=== PATIENT | female | born 1960 | race Asian ===

== ENCOUNTER 2018-10-05 16:51 | Inpatient (IN) | payer OTHER ==
[~2018-10-05] VITALS: Ht 167.6 cm; Wt 63.0 kg
[~2018-10-05 16:51] MED LIST: AMLO2.5T3 PO; BP MED; CARB1TAB25 PO; CHOL400C PO; ENOX40SY4 SQ; OXYC1TAB7 PO; PARKINSON MED; TRIH2TAB3 PO
[2018-10-05] MEDS ORDERED: SODIUM CHLORIDE FLUSH 10ML SYR IVF ONE (18:30)
[2018-10-05] MEDS ORDERED: SODIUM CHLORIDE FLUSH 10ML SYR IVF PRN (19:00)
[2018-10-05 19:02] LABS: BASOPHILS # (AUTO) 0.02 x10^3/uL (0-0.1); BASOPHILS % (AUTO) 0 % (0-1); EOSINOPHILS # (AUTO) 0.02 x10^3/uL (0-0.4); EOSINOPHILS % (AUTO) 0 % (1-7); LYMPHOCYTES # (AUTO) 1.05 x10^3/uL (1-3.4); LYMPHOCYTES % (AUTO) 20 % (22-44); MD NO; MEAN CORPUSCULAR HEMOGLOBIN 33.7 pg (27.0-34.8); MEAN CORPUSCULAR HGB CONC 34.2 g/dL (32.4-35.8); MEAN CORPUSCULAR VOLUME 98.5 fL (80-100); MEAN PLATELET VOLUME 8.7 fL (7.4-10.4); MONOCYTES # (AUTO) 0.34 x10^3/uL (0.2-0.8); MONOCYTES % (AUTO) 7 % (2-9); NEUTROPHILS # (AUTO) 3.77 x10^3/uL (1.8-6.8); NEUTROPHILS % (AUTO) 73 % (42-75); PLATELET COUNT 180 x10^3/uL (130-400); RED BLOOD COUNT 3.83 x10^6/uL (3.82-5.3); RED CELL DISTRIBUTION WIDTH 13.2 % (9.6-15.2)
[2018-10-05 19:08] LABS: INTERNATIONAL NORMALIZED RATIO 0.98 (0.93-1.1); PROTHROMBIN TIME 10.2 Seconds (9.6-11.5)
[2018-10-05 19:10] LABS: ALANINE AMINOTRANSFERASE 19 U/L (12-78); ALBUMIN 3.8 g/dL (3.4-5.0); ANION GAP 5 mmol/L (5-15); CALCIUM 9.2 mg/dL (8.5-10.1); CHLORIDE 107 mmol/L (98-107)
[2018-10-05 19:13] LABS: ALKALINE PHOSPHATASE 86 U/L (45-117); BILIRUBIN,TOTAL 0.4 mg/dL (0.2-1.0); CREATININE 0.57 mg/dL (0.55-1.02); TOTAL PROTEIN 7.6 g/dL (6.4-8.2)
[2018-10-05] MEDS ORDERED: BISACODYL 10 MG SUPP PR PRN (19:30)
[2018-10-05] MEDS ORDERED: ONDANSETRON ODT 4 MG PO PRN (19:30)
[2018-10-05] MEDS ORDERED: POLYETHYLENE GLYCOL 17 GM PACKET PO PRN (19:30)
[2018-10-05] MEDS: HEPARIN 5,000 UNITS/ML, 1ML SQ SCH (19:30)
[2018-10-05] MEDS: TRIHEXYPHENIDYL 2MG TABLET PO SCH (21:00)
[2018-10-05] MEDS: SODIUM CHLORIDE FLUSH 10ML SYR IVF SCH (22:01)
[2018-10-05] MEDS: CARBIDOPA/LEVODOPA 25 MG/250 MG TABLET PO SCH (22:01)
[2018-10-05] MEDS: morphine SULFATE 10 MG/ML, 1ML IVPush PRN (22:02)
[2018-10-05 22:23] VITALS: BP 124/79
[2018-10-06 00:14] VITALS: BP 105/70
[2018-10-06] MEDS: HEPARIN 5,000 UNITS/ML, 1ML SQ SCH ×2 (02:59→11:12)
[2018-10-06 05:18] LABS: BASOPHILS # (AUTO) 0.02 x10^3/uL (0-0.1); BASOPHILS % (AUTO) 0 % (0-1); EOSINOPHILS # (AUTO) 0.06 x10^3/uL (0-0.4); EOSINOPHILS % (AUTO) 1 % (1-7); LYMPHOCYTES # (AUTO) 0.92 x10^3/uL (1-3.4); LYMPHOCYTES % (AUTO) 15 % (22-44); MD NO; MEAN CORPUSCULAR HEMOGLOBIN 33.8 pg (27.0-34.8); MEAN CORPUSCULAR HGB CONC 34.4 g/dL (32.4-35.8); MEAN CORPUSCULAR VOLUME 98.2 fL (80-100); MEAN PLATELET VOLUME 8.4 fL (7.4-10.4); MONOCYTES # (AUTO) 0.58 x10^3/uL (0.2-0.8); MONOCYTES % (AUTO) 10 % (2-9); NEUTROPHILS # (AUTO) 4.43 x10^3/uL (1.8-6.8); NEUTROPHILS % (AUTO) 74 % (42-75); PLATELET COUNT 157 x10^3/uL (130-400); RED BLOOD COUNT 3.84 x10^6/uL (3.82-5.3); RED CELL DISTRIBUTION WIDTH 13.3 % (9.6-15.2)
[2018-10-06 05:28] LABS: CHLORIDE 107 mmol/L (98-107)
[2018-10-06 05:36] LABS: ALANINE AMINOTRANSFERASE 13 U/L (12-78); ALBUMIN 3.5 g/dL (3.4-5.0); ALKALINE PHOSPHATASE 74 U/L (45-117); ANION GAP 8 mmol/L (5-15); BILIRUBIN,TOTAL 0.8 mg/dL (0.2-1.0); CALCIUM 9.1 mg/dL (8.5-10.1); CREATININE 0.57 mg/dL (0.55-1.02); TOTAL PROTEIN 6.8 g/dL (6.4-8.2)
[2018-10-06 07:20] VITALS: BP 109/69
[2018-10-06] MEDS: TRIHEXYPHENIDYL 2MG TABLET PO SCH ×3 (08:11→20:47)
[2018-10-06] MEDS: AMLODIPINE 2.5 MG TABLET PO SCH (08:11)
[2018-10-06] MEDS: SENNA/DOCUSATE TABLET PO SCH (08:11)
[2018-10-06] MEDS: CARBIDOPA/LEVODOPA 25 MG/250 MG TABLET PO SCH ×3 (08:12→20:46)
[2018-10-06] MEDS: SODIUM CHLORIDE FLUSH 10ML SYR IVF SCH ×2 (08:18→20:47)
[2018-10-06] MEDS: morphine SULFATE 10 MG/ML, 1ML IVPush PRN (08:18)
[2018-10-06] MEDS ORDERED: FENTANYL PF 100 MCG/2ML ONE ×2 (11:51→13:05)
[2018-10-06] MEDS ORDERED: OXYcodone 5 MG/5 ML ORAL.SOL UDC PO PRN (12:00)
[2018-10-06] MEDS ORDERED: ACETAMINOPHEN 325 MG TABLET PO PRN (12:00)
[2018-10-06] MEDS ORDERED: DIPHENHYDRAMINE 50 MG/ML, 1ML IVPush PRN (12:00)
[2018-10-06] MEDS ORDERED: PROCHLORPERAZINE 5 MG/ML, 2ML IV PRN (12:00)
[2018-10-06] MEDS ORDERED: HYDROmorphone 1 MG/ML, 1ML IV PRN ×2 (12:00→15:30)
[2018-10-06] MEDS ORDERED: MEPERIDINE/PF 25MG/0.5ML IVPush PRN (12:00)
[2018-10-06] MEDS ORDERED: LABETALOL 5MG/ML, 20ML IV PRN (12:00)
[2018-10-06] MEDS ORDERED: FENTANYL PF 100 MCG/2ML IV PRN (12:00)
[2018-10-06] MEDS ORDERED: hydrALAzine 20 MG/ML, 1ML IV PRN (12:00)
[2018-10-06] MEDS ORDERED: OXYcodone 5 MG/5 ML ORAL.SOL UDC ONE (13:05)
[2018-10-06] MEDS ORDERED: ACETAMINOPHEN 650 MG/20.3 ML UDC ONE (13:05)
[2018-10-06] MEDS ORDERED: KETOROLAC 30 MG/1 ML ONE (13:35)
[2018-10-06] MEDS ORDERED: KETOROLAC 30 MG/1 ML IVPush ONE (14:00)
[2018-10-06] MEDS: ACETAMINOPHEN 325 MG TABLET PO PRN (15:13)
[2018-10-06 15:16] VITALS: BP 126/86
[2018-10-06] MEDS ORDERED: HYDROcodone/APAP 7.5-325MG/15ML UDC PO PRN (15:30)
[2018-10-06] MEDS ORDERED: OXYcodone/APAP 5/325MG TABLET PO PRN (15:30)
[2018-10-06] MEDS ORDERED: ONDANSETRON 2MG/ML, 2ML IV PRN (15:30)
[2018-10-06] MEDS ORDERED: DIPHENHYDRAMINE 25 MG CAPSULE PO PRN (15:30)
[2018-10-06] MEDS ORDERED: CHOLECALCIFEROL MC SCH (16:00)
[2018-10-06] MEDS ORDERED: ONDANSETRON 2MG/ML, 2ML ONE (16:19)
[2018-10-06] MEDS ORDERED: DEXAMETHASONE 4 MG/ML, 1ML ONE (16:19)
[2018-10-06] MEDS ORDERED: PROPOFOL 10 MG/ML, 20ML ONE (16:19)
[2018-10-06] MEDS ORDERED: CEFAZOLIN 1,000 MG ONE (16:19)
[2018-10-06 19:53] VITALS: BP 102/65
[2018-10-06] MEDS: DOCUSATE 100 MG CAPSULE PO SCH (20:46)
[2018-10-06] MEDS: KETOROLAC 30 MG/1 ML IV SCH (20:47)
[2018-10-06] MEDS: CEFAZOLIN PMX 1GM/50ML 50 ML IVPB SCH (20:47)
[2018-10-07] VITALS (7 sets, daily range): BP systolic 85–110; BP diastolic 51–71
[2018-10-07 01:34] LABS: CULTURE INDICATED? YES; MICROSCOPIC AUTO
[2018-10-07] MEDS: ENOXAPARIN 40 MG/0.4 ML SQ SCH (05:17)
[2018-10-07] MEDS: KETOROLAC 30 MG/1 ML IV SCH ×2 (05:17→13:26)
[2018-10-07] MEDS: CEFAZOLIN PMX 1GM/50ML 50 ML IVPB SCH (05:18)
[2018-10-07] MEDS: CHOLECALCIFEROL PO SCH (09:02)
[2018-10-07] MEDS: SENNA/DOCUSATE TABLET PO SCH (09:02)
[2018-10-07] MEDS: AMLODIPINE 2.5 MG TABLET PO SCH (09:02)
[2018-10-07] MEDS: CARBIDOPA/LEVODOPA 25 MG/250 MG TABLET PO SCH ×3 (09:02→20:14)
[2018-10-07] MEDS: DOCUSATE 100 MG CAPSULE PO SCH ×2 (09:03→20:14)
[2018-10-07] MEDS: SODIUM CHLORIDE FLUSH 10ML SYR IVF SCH ×2 (09:05→20:15)
[2018-10-07] MEDS: TRIHEXYPHENIDYL 2MG TABLET PO SCH ×3 (13:19→20:15)
[2018-10-08 03:02] VITALS: BP 102/66
[2018-10-08 05:04] LABS: ALBUMIN 3.1 g/dL (3.4-5.0); ANION GAP 5 mmol/L (5-15); CALCIUM 8.6 mg/dL (8.5-10.1); CHLORIDE 108 mmol/L (98-107); CREATININE 0.69 mg/dL (0.55-1.02)
[2018-10-08 05:20] LABS: MEAN CORPUSCULAR HEMOGLOBIN 33.2 pg (27.0-34.8); MEAN CORPUSCULAR HGB CONC 33.6 g/dL (32.4-35.8); MEAN CORPUSCULAR VOLUME 98.7 fL (80-100); MEAN PLATELET VOLUME 8.5 fL (7.4-10.4); PLATELET COUNT 141 x10^3/uL (130-400); RED CELL DISTRIBUTION WIDTH 13.2 % (9.6-15.2)
[2018-10-08] MEDS: ACETAMINOPHEN 325 MG TABLET PO PRN (05:32)
[2018-10-08] MEDS: ENOXAPARIN 40 MG/0.4 ML SQ SCH (05:32)
[2018-10-08 06:03] LABS: BASOPHILS # (AUTO) 0.03 x10^3/uL (0-0.1); BASOPHILS % (AUTO) 1 % (0-1); EOSINOPHILS # (AUTO) 0.08 x10^3/uL (0-0.4); EOSINOPHILS % (AUTO) 2 % (1-7); LYMPHOCYTES # (AUTO) 1.87 x10^3/uL (1-3.4); LYMPHOCYTES % (AUTO) 39 % (22-44); MD SCAN; MONOCYTES # (AUTO) 0.45 x10^3/uL (0.2-0.8); MONOCYTES % (AUTO) 9 % (2-9); NEUTROPHILS % (AUTO) 50 % (42-75)
[2018-10-08 07:25] VITALS: BP 85/56
[2018-10-08] MEDS: AMLODIPINE 2.5 MG TABLET PO SCH (09:00)
[2018-10-08] MEDS: TRIHEXYPHENIDYL 2MG TABLET PO SCH (09:39)
[2018-10-08] MEDS: SODIUM CHLORIDE FLUSH 10ML SYR IVF SCH (09:39)
[2018-10-08] MEDS: SENNA/DOCUSATE TABLET PO SCH (09:41)
[2018-10-08] MEDS: CARBIDOPA/LEVODOPA 25 MG/250 MG TABLET PO SCH (09:41)
[2018-10-08] MEDS: CHOLECALCIFEROL PO SCH (09:41)
[2018-10-08] MEDS: DOCUSATE 100 MG CAPSULE PO SCH (09:41)
[2018-10-08] MEDS ORDERED: ASPI325T17 PO (10:06)
[2018-10-08] MEDS ORDERED: HYDR-3240 PO (11:58)
[2018-10-08 13:08] VITALS: BP 116/73
== END 2018-10-08 13:45 | disposition home or self-care (01) | DRG 482 ==
LOC: ED 17:55 → EDIP 18:40 → 4NOR 19:30
PROVIDERS: ADMIT Internal Medicine; ATTEND Internal Medicine
PROC: 0QS734Z Reposition Left Upper Femur with Internal Fixation Device, Percutaneous Approach (ICD-10-PCS; principal; 2018-10-06 12:00)
PROC: 0T9B70Z Drainage of Bladder with Drainage Device, Via Natural or Artificial Opening (ICD-10-PCS; 2018-10-07)
DX: S72.002A Fracture of unspecified part of neck of left femur, initial encounter for closed fracture (principal); G20 Parkinson's disease; I10 Essential (primary) hypertension; W18.39XA Other fall on same level, initial encounter; Y93.01 Activity, walking, marching and hiking; Y92.89 Other specified places as the place of occurrence of the external cause; Y99.8 Other external cause status; Z82.0 Family history of epilepsy and other diseases of the nervous system; Z83.3 Family history of diabetes mellitus; Z79.899 Other long term (current) drug therapy; E55.9 Vitamin D deficiency, unspecified
CPT/HCPCS: 36415; 71045; 72190; 76000; 80048; 80053; 81001; 82040; 85025; 85610; 85730; 87086; 93005; 96374; C1713; G0378; J0690; J1100; J1650; J1885; J2405; J2704; J3010; J2270

== ENCOUNTER 2018-12-20 18:03 | Emergency (ER) | payer OTHER ==
[~2018-12-20] VITALS: Ht 167.6 cm; Wt 56.6 kg
[~2018-12-20 18:03] MED LIST changes: -AMLO2.5T3 PO; +AMLO2.5T5 PO; +ASPI325T17 PO; +HYDR-3240 PO
[2018-12-20 18:05] VITALS: BP 138/84
[2018-12-20] MEDS ORDERED: DIPH,PERTUSS(ACELL),TET VAC/PF 0.5 ML IM-VACC ONE ×2 (18:14→18:30)
[2018-12-20] MEDS ORDERED: LIDOCAINE-MPF 1%, 5ML ONE (18:16)
[2018-12-20] MEDS ORDERED: BACITRACIN ZINC OINT 500U/GM, 0.9 GM ONE (18:19)
[2018-12-20] MEDS ORDERED: LIDOCAINE 2%, 20ML SQ ONE (18:30)
== END 2018-12-20 18:46 | disposition home or self-care (01) ==
LOC: ED 18:20
DX: S61.212A Laceration without foreign body of right middle finger without damage to nail, initial encounter (principal); I10 Essential (primary) hypertension; W29.8XXA Contact with other powered hand tools and household machinery, initial encounter; Y92.008 Other place in unspecified non-institutional (private) residence as the place of occurrence of the external cause; Y93.89 Activity, other specified; Y99.8 Other external cause status
CPT/HCPCS: 90471; 90715

== ENCOUNTER 2019-04-09 15:25 | Emergency (ER) | payer OTHER ==
[~2019-04-09] VITALS: Ht 170.2 cm; Wt 56.0 kg
[2019-04-09 15:31] VITALS: BP 102/64
== END 2019-04-09 18:30 | disposition home or self-care (01) ==
LOC: ED 17:45
DX: S52.572A Other intraarticular fracture of lower end of left radius, initial encounter for closed fracture (principal); S69.92XA Unspecified injury of left wrist, hand and finger(s), initial encounter; I10 Essential (primary) hypertension; W08.XXXA Fall from other furniture, initial encounter; Y93.89 Activity, other specified; Y92.009 Unspecified place in unspecified non-institutional (private) residence as the place of occurrence of the external cause; Y99.8 Other external cause status
CPT/HCPCS: 29125; 99284